=== PATIENT | male | born 1985 | race Caucasian/White ===

== ENCOUNTER 2025-08-26 00:42 | Emergency (ER) | payer BC, SELFPAY ==
[2025-08-26 00:50] VITALS: BP 144/94
[2025-08-26 01:33] VITALS: BMI 28.6
--- NOTE | 2025-08-26 03:06 | ED.GENMED ---
History of Present Illness
General
Chief Complaint: Musculo-Skeletal Complaint
Source: patient
Exam Limitations: none
Time Seen by Provider: 08/26/25 01:57
Nursing documentation reviewed up to this point in time: agreed with
History of Present Illness
History of Present Illness:
Note:
CHIEF COMPLAINT(S)
Right-sided low back pain.hip pain/gluteal pain with radiation to the right leg.
HISTORY OF PRESENT ILLNESS
The patient is a 40-year-old male with no pmh who presents with approximately four to five months of right-sided low back pain that radiates to the right leg. The pain began without a distinct inciting event but has been more pronounced over the
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 Initially, the pain occurred when moving from sitting to standing, but stretching would alleviate it.
In the last week, the patient has experienced significant pain that disrupts his sleep, waking him up in the night. On Sunday morning, the pain intensified, prompting a visit to urgent care, where he received a prescription for a Medrol Dosepak and
a muscle relaxer. The patient reports the pain originates above the right hip bone, radiating through the right buttock and down the thigh to the foot, with associated tingling in the foot. The pain does note occasional improvement with movement,
and stiffness persists, causing difficulty ambulating.
The patient denies any lower abdominal or groin pain but mentions using abdominal muscles significantly to aid in movement. He notes increased tiredness. Sneezing and certain movements exacerbate the pain. He has difficulty achieving comfortable
positions, but lying with feet and particularly the knees elevated at night provides some relief.
The patient is scheduled for an appointment with an medical accounts receivable specialist next week on Sunday and is frustrated by delays in obtaining diagnostic imaging. The patient drove himself to the hospital and is able to ambulate normally. He denies fevers
or chills, urinary or fecal incontinence, genital paresthesias, chest pain, shortness of breath.
SOCIAL DETERMINANTS AFFECTING HEALTH
The patient is experiencing frustration due to delays in obtaining necessary diagnostic imaging and specialist consultation, influencing his ability to manage the current health issues efficiently.
REVIEW OF SYSTEMS
- Musculoskeletal: Right-sided low back pain with radiation to right buttock, thigh, and foot. Tingling sensation in the right foot and difficulty ambulating.
- Neurological: Tingling in the right foot.
- Urinary: Increased effort and tiredness when beginning urination.
- Gastrointestinal: Relies heavily on using abdominal muscles for movement; tired abdominal muscles noted.
PHYSICAL EXAM
General: Alert, no acute distress.
Skin: Warm, dry.
Head: Normocephalic, atraumatic.
Neck: Supple, trachea midline.
Eyes, Ears, Nose, Mouth, and Throat: Oral mucosa moist.
Cardiovascular: Normal peripheral perfusion, No edema.
Respiratory: Respirations are non-labored.
Gastrointestinal: Abdomen nondistended. No tenderness and McBurney's point. No pulsatile abdominal mass.
Back: No midline spinal tenderness. Tenderness to palpation along the right lower paraspinal muscles. Passive right hip flexion brings about hip/back pain.
Musculoskeletal: Pain with movement, difficulty ambulating due to back and leg pain.
Neurological: Alert and oriented to person, place, time, and situation, tingling in the right foot,but gross sensation intact, 2+ DP and PT pulse bilaterally. Good dorsiflexion and plantar flexion strength. No focal neurological deficit observed. CN
II-XII intact.
Psychiatric: Cooperative, appropriate mood & affect.
PROBLEM LIST
Acute Problems:
1. Right-sided low back pain with radiation into the right leg.
2. Tingling sensation in the right foot.
3. Difficulty ambulating due to pain.
PLAN
1. Administer a Toradol injection to manage acute pain.
2. Prescribe oral prednisone to reduce inflammation and facilitate symptom improvement, switching from Medrol Dosepak.
3. Proceed with a CT scan of the lumbar spine to evaluate for disc pathology or other abnormalities, providing some preliminary information before the orthopedic consultation with understanding that MRI is test of choice
4. Ortho follow up
DIFFERENTIAL DIAGNOSIS
The Differential Diagnosis includes, in no particular order and is not limited to:
1. Herniated lumbar disc with radiculopathy
2. Lumbar spinal stenosis
3. Sciatica
4. Lumbar strain or sprain
5. Piriformis syndrome
6. Sacroiliitis
7. Facet joint osteoarthritis
8. Ankylosing spondylitis
9. Compression fracture
10. Infectious process (e.g., epidural abscess, osteomyelitis)
CHART REVIEW
Hip x-ray unavailable for review
No prior ER records or hospital discharge summaries to review in [facility]
LABS
not indicated
MDM/DISPOSITION
40 y/o male presents to the ER with concerns of back pain/hip pain radiating into the leg. He has associated paresthesias in his foot. No urinary or fecal incontinence, fevers or chills, pulsatile abdominal mass. He nesbitt s a nonfocal neuro exam.
Normal strength normal gait no foot drop. CT lumbar spine negative for fracture, spondylolisthesis, etc. History and physical exam consistent with sciatia, ddx herniated disc, piriformis syndrome etc. Pt has orth follow up on Sunday. Discussed
strict return precautions.
Phy Exam
Physical Exam
Physical Exam:
see hpi
Sepsis
Sepsis Screening
Sepsis Assessment: Sepsis Ruled Out
Sepsis Screen
Sepsis Screen: Sepsis Ruled Out
Date: 08/26/25
Time: 10:55
Course
Orders/Labs/Results
Orders:
Orders
08/26/25 03:06
CT Lumbar Spine W/o Iv Contras Urgent
Comment:
Reason For Exam: low back pain/hip pain/foot paresthesias
Ketorolac [Toradol] 30 mg IM NOW STA
08/26/25 05:16
Prednisone [Deltasone] 50 mg PO DAILY ONE
Vital Signs
Initial and Last Documented VS:
Initial Vital Signs
Temp Pulse Resp BP Pulse Ox
98.0 F 104 20 144/94 97
08/26/25 00:50 08/26/25 00:50 08/26/25 00:50 08/26/25 00:50 08/26/25 00:50
Last Documented Vital Signs
Temp Pulse Resp BP Pulse Ox
98.0 F 84 18 146/84 97
08/26/25 00:50 08/26/25 06:18 08/26/25 06:18 08/26/25 06:18 08/26/25 06:18
*Pulse Oximetry
SaO2: 98
Oxygen Mode of Delivery: Room air
Patient hypoxic: no
*Critical Care Note
Total Time (30-74mins, 75-104mins- exclusive of procedures): Not Applicable
ED Attending Note
-
Portions of this chart may have been created with voice recognition software.� Occasional wrong word or��sound alike� substitutions may have occurred due to the inherent limitations of voice recognition software.
Discharge Plan
Departure
Patient Disposition: Home (Routine Discharge)
Date of Disposition: 08/26/25
Time of Disposition: 05:19
Patient with high blood pressure during this ER visit?: Yes
Condition: Good
Discharge Problem:
Sciatica
Instructions: Sciatica - ED (DC), Hip pain - ED (DC)
Prescriptions:
New
prednisone 20 mg tablet
40 mg PO DAILY 4 Days Qty: 8 0RF
No Action
methocarbamol
1,000 mg PO QID
methylprednisolone
1 dose PO DAILY
Rx Instructions:
decreasing dosing daily took 12mg po today
Referrals:
Ayse Dutton MD [Family Provider, Internal Medicine]
Activity Restrictions/Additional Instructions:
Starting tomorrow, you can take 40 mg of prednisone once daily for 4 additional days. Please follow-up with your orthopedist as scheduled on Sunday. You can also try the muscle relaxant or Tylenol for breakthrough pain. Please do not take NSAIDs
or the Medrol Dosepak while taking the prednisone.
PLEASE RETURN TO THE ER SHOULD YOU DEVELOP FEVER, RIGHT LOWER QUADRANT ABDOMINAL PAIN, INTRACTABLE NAUSEA OR VOMITING, TESTICULAR PAIN, URINARY OR FECAL INCONTINENCE, NUMBNESS OR TINGLING IN THE GENITAL REGION, INABILITY TO AMBULATE, CHEST PAIN,
SHORTNESS OF BREATH, OR ANY OTHER SIGNS OR SYMPTOMS RECENTLY.
Interventions
Interventions:
*Risk Screen - Suicide Last Done: 08/26/25 00:50
*General Assessment Last Done: 08/26/25 01:33
*Neglect/Abuse Screening Last Done: 08/26/25 03:27
*ED COVID-19 Vaccine History Last Done: 08/26/25 01:33
*ED Influenza Vaccine History Last Done: 08/26/25 01:33
*Nursing Disposition Last Done: 08/26/25 06:18
ED-Musculoskeletal Assessment Last Done: 08/26/25 01:35
Discharge Date and Time
Discharge Date/Time: 08/26/25 06:20
Print Language: ARMENIAN
[2025-08-26] MEDS: TORADOL 30 MG IM (03:19)
[2025-08-26] MEDS: DELTASONE 50 MG PO (06:16)
[2025-08-26 06:18] VITALS: BP 146/84
== END 2025-08-26 06:20 | disposition home or self-care (01) ==
LOC: EMR 00:42
PROVIDERS: EMERGENCY PHYSICIAN Student in an Organized Health Care Education/Training Program; FAMILY PHYSICIAN Hospitalist
DX: M54.41 Lumbago with sciatica, right side (principal); R03.0 Elevated blood-pressure reading, without diagnosis of hypertension
CPT/HCPCS: 99284; 96372; 72131